=== PATIENT | female | born 1985 | race African-American/Black ===

== ENCOUNTER 2020-06-03 09:35 | Day surgery (SDC) | payer OTHER ==
[2020-05-29 15:25] VITALS: BMI 34.5
[2020-06-03 10:14] VITALS: TEMP 97.7
[2020-06-03] MEDS ORDERED: LIDOCAINE HCL 2% (20ML MULTI-DOSE VIAL) ONE (10:48)
[2020-06-03] MEDS ORDERED: MIDAZOLAM HCL 2 MG/2 ML SINGLE DOSE VIAL ONE (11:02)
[2020-06-03] MEDS ORDERED: PROPOFOL 20 ML ONE (11:12)
[2020-06-03 12:46] VITALS: BP 129/89; PULSE 89
== END 2020-06-03 12:40 | disposition home or self-care (01) ==
LOC: FASU 09:35
PROVIDERS: ATTEND Orthopaedic Surgery Hand Surgery
PROC: 0LN70ZZ Release Right Hand Tendon, Open Approach (ICD-10-PCS; principal; 2020-06-03 11:25)
DX: M65.311 Trigger thumb, right thumb (principal)
CPT/HCPCS: 84703